=== PATIENT | male | born 1965 | race Caucasian/White ===

== ENCOUNTER 2017-07-08 16:12 | Emergency (ER) | payer SELFPAY ==
[~2017-07-08] VITALS: Ht 182.9 cm; Wt 68.0 kg
[2017-07-08 16:55] VITALS: BP 142/88
== END 2017-07-08 16:59 | disposition left against medical advice (07) ==
LOC: ER 16:16
DX: R10.9 Unspecified abdominal pain (principal); Z53.21 Procedure and treatment not carried out due to patient leaving prior to being seen by health care provider